=== PATIENT | male | born 1990 | race Caucasian/White ===

== ENCOUNTER 2019-02-10 10:33 | Emergency (ER) | payer SELFPAY ==
[2019-02-10 10:45] VITALS: TEMP 98.2
--- NOTE | 2019-02-10 11:04 | ED.PDOC ---
History of Present Illness - General Chief Complaint: Headache Stated Complaint: headache,dizzy Time Seen by Provider: 02/10/19 10:57 Source: patient, family Exam Limitations: no limitations - History of Present Illness Initial Comments: patient comes in today for severe headache 2 days. Patient has right sided frontal and behind the right eye headache that is throbbing and persistent over the past 2 days. It is severe and constant. Patient states he used to get migraine headaches when he was young but they always went away in a matter of hours. He denies any aura or emesis. He currently does not have nausea. Patient states he did have a little bit of left upper quadrant abdominal pain yesterday but that has since resolved. He has had no sinus congestion or all ergies. He denies any fever, chills, altered LOC, or vision change. He occasionally does feel dizzy and states it alternates between the room spinning and just feeling lightheaded. He has a past medical history of hypertension and he does not currently take medications. Patient is unable to afford to go to the clinic regularly although he did try to go for the headache but they wouldn't see him without money. He has checked his BP multiple times at [facility] and is usually in the 160s systolic. Patient does not smoke but does dip. He does not drink or take illicit drugs. 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 He did take IBU last 600 mg at 8 am. Timing/Duration: other - 2 days and not going away Quality: severe, throbbing Head Injury Location: frontal Recent Head Trauma: no recent headache/trauma Improving Factors: nothing Worsening Factors: other - bright lights or sounds Associated Symptoms: nausea/vomiting Allergies/Adverse Reactions: Allergies NO KNOWN ALLERGY Allergy (Unverified 12/13/13 17:02) Home Medications: Ambulatory Orders Chlorthalidone 25 mg PO DAILY #30 tab 02/10/19 Review of Systems - Review of Systems Constitutional: States: see HPI EENTM: States: see HPI. Denies: blurred vision, double vision, nose pain, nose congestion, throat pain Respiratory: States: no symptoms reported. Denies: cough, orthopnea, short of breath Cardiology: States: no symptoms reported. Denies: chest pain, edema, palpit ations Gastrointestinal/Abdominal: States: no symptoms reported. Denies: abdominal pain, constipation, diarrhea Genitourinary: States: no symptoms reported Endocrine: States: see HPI Past Medical History (General) - Patient Medical History Hx Stroke: No Hx Congestive Heart Failure: No Hx Hypertension: Yes Hx Diabetes: No Surgical History: no surgical history - Vaccination History Hx Influenza Vaccination: No - Social History Hx Tobacco Use: No Family Medical History - Family History Father Family History: Unknown Living Status: Cause of : Cancer from [place] Hx Family Hypertension: Yes Hx Family;Other: Mother with Cirrhosis of Liver Physical Exam - Physical Exam General Appearance: Alert, No apparent distress Eyes, Ears, Nose, Throat Exam: PERRL/EOMI, normal ENT inspection, TMs normal, pharynx normal Neck: non-tender, full range of motion, supple, normal inspection Cardiovascular/Chest: normal peripheral pulses, regular rate, rhythm, no edema Respiratory: chest non-tender, lungs clear, normal breath sounds, no respiratory distress Gastrointestinal/Abdominal: normal bowel sounds, non tender, soft Mental Status: 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 Toradol ordered and will give RX for 1 month for BP medication. Exam and labs are reassuring. Will send home for follow up with PCP in 3-5 days. - Results/Orders Results/Orders: 02/10/19 11:00 Chlorthalidone [Hygroton] 25 mg PO DAILY 02/10/19 11:48 Aspirin/Acetaminophen/Caffeine [Excedrin Migraine] 2 ea PO Q6H PRN Laboratory Results WBC 8.0 K/mm3 (4.8-10.8) 02/10/19 11:17 RBC 4.80 M/mm3 (4.70-6.10) 02/10/19 11:17 Hgb 13.9 gm/dL (14.0-18.0) L 02/10/19 11:17 Hct 42.2 % (42.0-52.0) 02/10/19 11:17 MCV 88.0 fl (80.0-94.0) 02/10/19 11:17 MCH 29.1 pg (27.0-31.0) 02/10/19 11:17 MCHC 33.0 g/dL (33.0-37.0) 02/10/19 11:17 RDW 13.7 % (11.5-14.5) 02/10/19 11:17 Plt Count 300 K/mm3 (130-400) 02/10/19 11:17 MPV 8.2 fl (7.40-10.4) 02/10/19 11:17 Absolute Neuts (auto) 5.70 K/uL (1.8-6.8) 02/10/19 11:17 Absolute Lymphs (auto) 1.60 K/uL (1.0-3.4) 02/10/19 11:17 Absolute Monos (auto) 0.50 K/uL (0.2-0.8) 02/10/19 11:17 Absolute Eos (auto) 0.10 K/uL (0.0-0.4) 02/10/19 11:17 Absolute Basos (auto) 0.00 K/uL (0.0-0.1) 02/10/19 11:17 Neutrophils % 71.6 % (42.0-78.0) 02/10/19 11:17 Lymphocytes % 20.1 % (20.0-50.0) 02/10/19 11:17 Monocytes % 6.4 % (2.0-9.0) 02/10/19 11:17 Eosinophils % 1.5 % (1.0-5.0) 02/10/19 11:17 Basophils % 0.4 % (0.0-2.0) 02/10/19 11:17 Sodium 138 mmol/L (135-145) 02/10/19 11:17 Potassium 4.0 mmol/L (3.6-5.0) 02/10/19 11:17 Chloride 102 mmol/L (101-111) 02/10/19 11:17 Carbon Dioxide 27 mmol/L (21-31) 02/10/19 11:17 Anion Gap 13.0 (12-18) 02/10/19 11:17 BUN 15 mg/dL (7-18) 02/10/19 11:17 Creatinine 0.57 mg/dL (0.6-1.3) L 02/10/19 11:17 BUN/Creatinine Ratio 26.3 (10-20) H 02/10/19 11:17 Random Glucose 87 mg/dL (70-105) 02/10/19 11:17 Serum Osmolality 275.9 mOsm/L (275-295) 02/10/19 11:17 Calcium 9.2 mg/dL (8.4-10.2) 02/10/19 11:17 Total Bilirubin 0.5 mg/dL (0.2-1.0) 02/10/19 11:17 AST 25 IU/L (10-42) 02/10/19 11:17 ALT 34 IU/L (10-60) 02/10/19 11:17 Alkaline Phosphatase 57 IU/L (42-121) 02/10/19 11:17 Serum Total Protein 7.7 gm/dL (6.4-8.2) 02/10/19 11:17 Albumin 4.2 g/dl (3.2-5.5) 02/10/19 11:17 Globulin 3.5 gm/dL (2.3-3.5) 02/10/19 11:17 Albumin/Globulin Ratio 1.2 (1.1-1.9) 02/10/19 11:17 Departure - Departure Clinical Impression: Headache Qualifiers: Headache type: unspecified Headache chronicity pattern: acute headache Intractability: not intractable Qualified Code(s): R51 - Headache Hypertension Qualifiers: Hypertension type: essential hypertension Qualified Code(s): I10 - Essential (primary) hypertension Disposition: Discharge to Home or Self Care Condition: Fair Departure Forms: ED Discharge - Pt. Copy, Patient Portal Self Enrollment Instructions: DI for Headache Referrals: Mag Boland NP [Primary Care Provider] - 1-2 Weeks Prescriptions: Chlorthalidone 25 mg PO DAILY #30 tab Home Medications: Ambulatory Orders Chlorthalidone 25 mg PO DAILY #30 tab 02/10/19 Additional Instructions: follow up with PCP in clinic to check K after taking medication for blood pressure. increase K rich foods. Return to ER for severe headache, altered LOC, vision change, intractable emesis.
[2019-02-10] MEDS: SUMAtriptan SUCCINATE INJ 6 MG/0.5 ML VIAL SUBCU ONE (11:10)
[2019-02-10] MEDS: CHLORTHALIDONE 25 MG TAB PO SCH (11:10)
[2019-02-10] MEDS: ASPIRIN/ACETAMINOPHEN/CAFFEINE 1 EA TAB PO PRN (12:11)
[2019-02-10] MEDS: KETOROLAC TROMETHAMINE INJ 60 MG/2 ML VIAL IM ONE (12:28)
[2019-02-10 12:54] VITALS: BP 136/92; O2SAT 97
== END 2019-02-10 12:54 | disposition home or self-care (01) ==
LOC: ER 10:33
DX: R51 Headache (principal); I10 Essential (primary) hypertension; R42 Dizziness and giddiness; F17.220 Nicotine dependence, chewing tobacco, uncomplicated; Z79.899 Other long term (current) drug therapy
CPT/HCPCS: 36415; 80053; 85025; J1885; J3030

== ENCOUNTER 2019-02-24 07:48 | Emergency (ER) | payer SELFPAY ==
[2019-02-24 07:58] VITALS: TEMP 97.7
[2019-02-24] MEDS ORDERED: IBUPROFEN 200 MG TAB PO ONE (08:03)
[2019-02-24] MEDS ORDERED: PENICILLIN BENZATHINE 1.2 MU 1.2 MU/2 ML SYG IM ONE (08:44)
--- NOTE | 2019-02-24 09:08 | ED.PDOC ---
History of Present Illness - General Chief Complaint: General Stated Complaint: cough,sore throat,fever Time Seen by Provider: 02/24/19 07:56 Source: patient - History of Present Illness Initial Comments: the patient's 28-year-old male presenting to the emergency room secondary to sore throat headache nausea and abdominal cramping and generalized body aches with malaise for the last 24 hours. No real runny nose. Mild cough. No syncope or near-syncope. No altered mental status. Timing/Duration: 24 hours Severity: moderate Improving Factors: nothing Worsening Factors: nothing Associated Symptoms: cough, fever/chills, headaches, loss of appetite, malaise Allergies/Adverse Reactions: Allergies NO KNOWN ALLERGY Allergy (Unverified 12/13/13 17:02) Home Medications: Ambulatory Orders Chlorthalidone 25 mg PO DAILY #30 tab 02/10/19 Review of Systems - Review of Systems Constitutional: States: fever, malaise EENTM: States: throat pain Respiratory: States: cough Cardiology: States: no symptoms reported Gastrointestinal/Abdominal: States: nausea Genitourinary: States: no symptoms reported Musculoskeletal: States: no symptoms reported - myalgias Skin: States: no symptoms reported Neurological: States: no symptoms reported Endocrine: States: no symptoms reported All other Systems: No Change from Baseline Past Medical History (General) - Patient Medical History Hx Stroke: No Hx Congestive Heart Failure: No Hx Hypertension: Yes Hx Diabetes: No Surgical History: no surgical history - Vaccination History Hx Influenza Vaccination: No - Social History Hx Tobacco Use: No Family Medical History - Family History Father Family History: Unknown Living Status: Cause of : Cancer from Agent [place] Hx Family Hypertension: Yes Hx Family;Other: Mother with Cirrhosis of Liver Physical Exam - Physical Exam General Appearance: Alert, Comfortable, No apparent distress Eye Exam: bilateral normal Ears, Nose, Throat: hearing grossly normal, pharyngeal erythema Neck: full range of motion, supple Respiratory: lungs clear, normal breath sounds, no respiratory distress, no accessory muscle use Cardiovascular/Chest: normal peripheral pulses, regular rate, rhythm, no edema Peripheral Pulses: radial,right: 2+, radial,left: 2+, dorsalis pedis,right: 2+, dorsalis pedis,left: 2+ Gastrointestinal/Abdominal: non tender, soft, other - obese Rectal Exam: deferred Back Exam: no CVA tenderness, no vertebral tenderness Extremity: non-tender, normal inspection, no pedal edema, normal capillary refill 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 The patient received a dose of Bicillin LA. He did test positive for this here and negative for influenza. He needs to keep himself well-hydrated. Motrin can be used with food every 8 hours to help control symptoms along with some Chloraseptic spray. ER warnings were given for any significant worsening. Keep routine follow up with primary care doctor otherwise. Departure - Departure Clinical Impression: Streptococcal sore throat Disposition: Discharge to Home or Self Care Condition: Fair Departure Forms: ED Discharge - Pt. Copy, Patient Portal Self Enrollment Instructions: Sore Throat, Adult (DC) Diet: regular diet Activity: increase activity as tolerated Referrals: Mag Boland NP [Primary Care Provider] - 1-2 Weeks Home Medications: Ambulatory Orders Chlorthalidone 25 mg PO DAILY #30 tab 02/10/19 Additional Instructions: the patient a 28-year-old male presenting with what appears to be streptococcal pharyngitis and associated symptoms. The patient received a dose of Bicillin LA. He did test positive for this here and negative for influenza. He needs to keep himself well-hydrated. Motrin can be used with food every 8 hours to help control symptoms along with some Chloraseptic spray. ER warnings were given for any significant worsening. Keep routine follow up with primary care doctor otherwise.
[2019-02-24 09:20] VITALS: BP 129/84; O2SAT 99
== END 2019-02-24 09:20 | disposition home or self-care (01) ==
LOC: ER 07:48
DX: J02.0 Streptococcal pharyngitis (principal); I10 Essential (primary) hypertension; Z79.899 Other long term (current) drug therapy
CPT/HCPCS: 36415; 87502; 87880; J0561

== ENCOUNTER 2019-03-17 11:17 | Emergency (ER) | payer SELFPAY ==
--- NOTE | 2019-03-17 11:39 | ED.PDOC ---
History of Present Illness - General Chief Complaint: Trauma Stated Complaint: right foot pain Time Seen by Provider: 03/17/19 11:19 Exam Limitations: no limitations - History of Present Illness Initial Comments: Estrada Boyle 28 y/o male came to ER with dull ache on his right foot and ankle on waking up this morning .DENIES HISTORY OF HURTING RIGHT FOOT but stated had been diagnosed with Rheumatoid Arthritis was prescribed medications in the past but did not get better so he stopped it.Denies hip,knee,elbow and pains joint of fingers.No fever,no chills, no easy fatigability. Timing/Duration: 24 hours Severity: moderate Improving Factors: rest Worsening Factors: movement Associated Symptoms: denies symptoms, other - see hpi Allergies/Adverse Reactions: Allergies NO KNOWN ALLERGY Allergy (Unverified 12/13/13 17:02) Home Medications: Ambulatory Orders Chlorthalidone 25 mg PO DAILY #30 tab 02/10/19 Allopurinol 300 mg PO DAILY #30 tab 03/17/19 Diclofenac Potassium 50 mg PO DAILY #10 tab 03/17/19 predniSONE 0 mg PO DAILY #5 tab 03/17/19 Review of Systems - Review of Systems Musculoskeletal: States: see HPI, joint pain - right ankle All other Systems: Reviewed and Negative, No Change from Baseline Past Medical History (General) - Patient Medical History Hx Stroke: No Hx Congestive Heart Failure: No Hx Hypertension: Yes Hx Diabetes: No Surgical History: no surgical history - Vaccination History Hx Tetanus, Diphtheria Vaccination: Yes - 2015 Hx Influenza Vaccination: No - Social History Hx Tobacco Use: No Hx Chewing Tobacco Use: No Hx Alcohol Use: No Hx Substance Use: No Hx Depression: No Feels Threatened In Home Enviroment: No Hx Physical Abuse: No Hx Emotional Abuse: No Family Medical History - Family History Father Family History: Unknown Living Status: Cause of : Cancer from [place] Hx Family Hypertension: Yes Hx Family;Other: Mother with Cirrhosis of Liver Physical Exam - Physical Exam General Appearance: Alert, Comfortable, No apparent distress Eye Exam: bilateral normal Ears, Nose, Throat: hearing grossly normal, normal ENT inspection, normal pharynx Neck: non-tender, full range of motion, supple, normal inspection Respiratory: lungs clear, normal breath sounds, no respiratory distress Cardiovascular/Chest: normal peripheral pulses, regular rate, rhythm, no murmur Peripheral Pulses: radial,right: 2+, radial,left: 2+ Gastrointestinal/Abdominal: non tender, soft, no organomegaly Back Exam: no CVA tenderness, no vertebral tenderness Extremity: no pedal edema, no calf tenderness, other - right ankle joint-rom slight painfu plantar extension and flexion Progress - Progress Progress: 03/17/19 12:02 Vital Signs - 24 hr 03/17/19 11:20 Pulse Rate [ 108 H left brachial] Respiratory 16 Rate Blood Pressure 152/90 [left brachial] O2 Sat by Pulse 98 Oximetry - Results/Orders Results/Orders: Laboratory Tests 03/17/19 11:53 Uric Acid 8.3 H - EKG/XRAY/CT XRAY: degenerative changes right foot Departure - Departure Clinical Impression: Pain in right ankle and joints of right foot, Acute gouty arthropathy Time of Disposition: 12:15 Disposition: Discharge to Home or Self Care Condition: Fair Departure Forms: ED Discharge - Pt. Copy, Patient Portal Self Enrollment Instructions: Gout (DC), Low Purine Diet, Lifestyle Changes to Manage Gout, Gout Referrals: Mag Boland NP [Primary Care Provider] - 1-2 Weeks Prescriptions: Allopurinol 300 mg PO DAILY #30 tab Diclofenac Potassium 50 mg PO DAILY #10 tab predniSONE 0 mg PO DAILY #5 tab Home Medications: Ambulatory Orders Chlorthalidone 25 mg PO DAILY #30 tab 02/10/19 Allopurinol 300 mg PO DAILY #30 tab 03/17/19 Diclofenac Potassium 50 mg PO DAILY #10 tab 03/17/19 predniSONE 0 mg PO DAILY #5 tab 03/17/19 Additional Instructions: NEED to follow up with your primary MD [phone] for recheck
[2019-03-17] MEDS ORDERED: KETOROLAC TROMETHAMINE INJ 30 MG/ML VIAL IM ONE (11:52)
[2019-03-17] MEDS ORDERED: DEXAMETHASONE INJ 4 MG/ML VIAL IM ONE (11:52)
--- NOTE | 2019-03-17 11:54 | RAD ---
EXAM DESCRIPTION: Foot,Right 3 Views CLINICAL HISTORY: pain with weight bearing COMPARISON: None Available. TECHNIQUE: AP, LATERAL, AND OBLIQUE radiographs of the right foot were obtained. FINDINGS: The visualized bones appear well mineralized. No acute fracture or dislocation. The soft tissues appear grossly unremarkable. Hammertoe deformities of the second through fifth toes are identified. Os peroneum is noted. Degenerative changes are identified in the midfoot. IMPRESSION: Mild degenerative changes are identified in the midfoot. Electronically signed by: Katelin Chahal MD 03/17/2019 11:52 AM CDT
[2019-03-17 13:29] VITALS: BP 131/85; O2SAT 99
== END 2019-03-17 13:05 | disposition home or self-care (01) ==
LOC: ER 11:17
DX: M10.9 Gout, unspecified (principal); M79.671 Pain in right foot; M25.571 Pain in right ankle and joints of right foot; M06.9 Rheumatoid arthritis, unspecified; I10 Essential (primary) hypertension; Z79.899 Other long term (current) drug therapy
CPT/HCPCS: 73630; 84550; J1100; J1885

== ENCOUNTER 2019-05-01 15:53 | Emergency (ER) | payer SELFPAY ==
[2019-05-01] MEDS ORDERED: ASPIRIN (CHEWABLE) 81 MG TAB PO ONE (16:35)
[2019-05-01] MEDS ORDERED: NITROGLYCERIN 2% 1 GM UD TOP ONE (16:36)
--- NOTE | 2019-05-01 16:41 | ED.PDOC ---
History of Present Illness - General Chief Complaint: Blood Pressure Problem Stated Complaint: headache,elevated BP,chest discomfort Time Seen by Provider: 05/01/19 16:14 Source: patient Exam Limitations: no limitations - History of Present Illness Initial Comments: Patient presents with pain in the left side of his neck and jaw for about 8 hours. It radiates down his left arm. It is constant and feels like "pressure". Associated with dyspnea and vertigo as well as light-headedness. He denies previous episodes. He said he was diagnosed with rheumatoid arthritis as a teen ager. He has htn but has not been taking his medication. Denies history of bipedal edema or hyperlipidemia. He denies history of tobacco use. He says that his father had heart disease and at the age of 44. He also says that he has two sisters, both have heart disease. On is in her 30s and the other in her early 40s. No other complaints. Timing/Duration: other - 8 hours Severity: moderate Improving Factors: nothing Worsening Factors: nothing Associated Symptoms: other - as in HPI Allergies/Adverse Reactions: Allergies NO KNOWN ALLERGY Allergy (Unverified 12/13/13 17:02) Home Medications: Ambulatory Orders Meclizine HCl [Meclizine 25] 25 mg PO BID PRN #20 tab 05/01/19 Review of Systems - Review of Systems Constitutional: States: no symptoms reported EENTM: States: no symptoms reported Respiratory: States: see HPI Cardiology: States: see HPI Gastrointestinal/Abdominal: States: no symptoms reported Genitourinary: States: no symptoms reported Musculoskeletal: States: no symptoms reported Skin: States: no symptoms reported Neurological: States: no symptoms reported Endocrine: States: no symptoms reported Hematologic/Lymphatic: States: no symptoms reported Past Medical History (General) - Patient Medical History Hx Stroke: No Hx Congestive Heart Failure: No Hx Hypertension: Yes Hx Diabetes: No Surgical History: no surgical history - Vaccination History Hx Tetanus, Diphtheria Vaccination: Yes - 2016 Hx Influenza Vaccination: No - Social History Hx Tobacco Use: No Hx Chewing Tobacco Use: No Hx Alcohol Use: No Hx Substance Use: No Hx Depression: No Hx Physical Abuse: No Hx Emotional Abuse: No Family Medical History - Family History Father Family History: Unknown Living Status: Cause of : Cancer from Agent [place] Hx Family Hypertension: Yes Hx Family;Other: Mother with Cirrhosis of Liver Physical Exam - Physical Exam General Appearance: Alert Eye Exam: bilateral normal Ears, Nose, Throat: normal ENT inspection Neck: non-tender, full range of motion, supple Respiratory: lungs clear, normal breath sounds Cardiovascular/Chest: normal peripheral pulses, regular rate, rhythm, no edema Gastrointestinal/Abdominal: normal bowel sounds, non tender, soft Back Exam: normal inspection, no CVA tenderness Extremity: normal range of motion, non-tender, normal inspection 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, no motor/sensory deficits, alert, normal mood/affect, oriented x 3 Skin Exam: normal color Lymphatic: no adenopathy Progress - Progress Progress: 05/01/19 18:44 Laboratory Tests 05/01/19 05/01/19 05/01/19 16:53 16:53 16:53 WBC 8.6 RBC 5.14 Hgb 15.3 Hct 45.6 MCV 88.7 MCH 29.7 MCHC 33.5 RDW 14.2 Plt Count 320 MPV 8.2 Absolute Neuts (auto) 6.30 Absolute Lymphs (auto) 1.60 Absolute Monos (auto) 0.60 Absolute Eos (auto) 0.10 Absolute Basos (auto) 0.10 Neutrophils % 72.6 Lymphocytes % 18.7 L Monocytes % 7.0 Eosinophils % 1.0 Basophils % 0.7 PT 9.9 INR 0.99 PTT (SP) 25.8 Sodium 139 Potassium 3.9 Chloride 101 Carbon Dioxide 29 Anion Gap 12.9 BUN 11 Creatinine 0.71 BUN/Creatinine Ratio 15.5 Random Glucose 93 Serum Osmolality 276.6 Calcium 9.6 Total Bilirubin 0.4 AST 35 ALT 51 Alkaline Phosphatase 69 Creatine Kinase CK-MB (CK-2) CK-MB (CK-2) % Troponin I B-Natriuretic Peptide Serum Total Protein 8.5 H Albumin 4.4 Globulin 4.1 H Albumin/Globulin Ratio 1.1 05/01/19 16:53 WBC RBC Hgb Hct MCV MCH MCHC RDW Plt Count MPV Absolute Neuts (auto) Absolute Lymphs (auto) Absolute Monos (auto) Absolute Eos (auto) Absolute Basos (auto) Neutrophils % Lymphocytes % Monocytes % Eosinophils % Basophils % PT INR PTT (SP) Sodium Potassium Chloride Carbon Dioxide Anion Gap BUN Creatinine BUN/Creatinine Ratio Random Glucose Serum Osmolality Calcium Total Bilirubin AST ALT Alkaline Phosphatase Creatine Kinase 148 CK-MB (CK-2) 1.5 CK-MB (CK-2) % Not Reportable Troponin I < 0.02 B-Natriuretic Peptide 8.5 Serum Total Protein Albumin Globulin Albumin/Globulin Ratio EKG showed NSR with no ST changes nor T wave inversions. No LBBB. Troponin negative. CT head and C-spine negative. Patient's vertigo improved significantly with Meclizine 25 mg po x one. He was instructed to follow up with his pcp for a possible stress test. Care instructions given. E.R. warnings given. Questions were elicited and answered. Patient voiced understanding and agreement with the plan. Departure - Departure Clinical Impression: Vertigo, Chest pain Disposition: Discharge to Home or Self Care Condition: Good Departure Forms: ED Discharge - Pt. Copy, Patient Portal Self Enrollment Instructions: Vertigo (a Type of Dizziness) (DC), Chest Pain (DC) Diet: resume usual diet Activity: increase activity as tolerated Referrals: Mag Boland, [employer] [Primary Care Provider] - 1-2 Weeks Prescriptions: Meclizine HCl [Meclizine 25] 25 mg PO BID PRN #20 tab PRN Reason: Dizziness Home Medications: Ambulatory Orders Meclizine HCl [Meclizine 25] 25 mg PO BID PRN #20 tab 05/01/19 Additional Instructions: Take medication as prescribed. See your regular doctor about getting a treadmill stress test. See your regular doctor if dizziness or neck and arm pain continue for more than 4 weeks. Return to the E.R. for worsening symptoms. Critical Care Note - Critical Care Note Total Time (mins): 100
--- NOTE | 2019-05-01 17:04 | RAD ---
EXAM:Chest,2 Views CLINICAL INDICATION: Chest pain COMPARISON: 12/13/2013 FINDINGS:Two views of the chest were obtained. The heart size is normal. The pulmonary vascularity is unremarkable. The lungs are clear. There is no consolidation, infiltrate, pleural effusion, or pneumothorax. IMPRESSION: No evidence of active pulmonary disease. Electronically signed by: Amor Cifuentes MD 05/01/2019 5:02 PM CDT
[2019-05-01] MEDS ORDERED: MECLIZINE HCL 12.5 MG TAB PO ONE (17:41)
--- NOTE | 2019-05-01 18:08 | CT ---
EXAM: Head CLINICAL INDICATION: Vertigo COMPARISON: There is no previous study for comparison. TECHNIQUE: The CT scan was done using contiguous axial 2.5 mm sections through the brain. This exam was performed according to our departmental dose-optimization program, which includes automated exposure control, adjustment of the mA and/or kV according to patient size and/or use of iterative reconstruction technique. FINDINGS: There is no midline shift, mass effect, or extraaxial fluid collection. There is no evidence of acute intracranial hemorrhage, mass lesion, or cerebral edema. The ventricles and cortical sulci are normal for the patient's age. Bone window images reveal no evidence of a skull fracture. IMPRESSION: No evidence of an acute intracranial process. Electronically signed by: Amor Cifuentes MD 05/01/2019 6:06 PM CDT
--- NOTE | 2019-05-01 18:09 | CT ---
EXAM: Cervical Spine CLINICAL INDICATION: Arm pain COMPARISON: There is no previous study for comparison. TECHNIQUE: The CT scan was done using contiguous axial 3mm sections through the cervical spine with sagittal and coronal reconstructions. This exam was performed according to our departmental dose-optimization program, which includes automated exposure control, adjustment of the mA and/or kV according to patient size and/or use of iterative reconstruction technique. FINDINGS: There is no fracture or subluxation. The prevertebral soft tissues are normal. The bilateral facet joint alignment is normal. The osseous structures appear intact and unremarkable. IMPRESSION: Essentially negative cervical spine CT scan. Electronically signed by: Amor Cifuentes MD 05/01/2019 6:07 PM CDT
[2019-05-01 19:05] VITALS: BP 140/91; TEMP 98.2; O2SAT 98
== END 2019-05-01 18:55 | disposition home or self-care (01) ==
LOC: ER 15:53
DX: R07.9 Chest pain, unspecified (principal); R42 Dizziness and giddiness; M54.2 Cervicalgia; R68.84 Jaw pain; R06.00 Dyspnea, unspecified; M06.9 Rheumatoid arthritis, unspecified; I10 Essential (primary) hypertension; Z82.49 Family history of ischemic heart disease and other diseases of the circulatory system

== ENCOUNTER 2019-07-11 10:18 | Emergency (ER) | payer SELFPAY ==
[2019-07-11 10:41] VITALS: TEMP 98
[2019-07-11] MEDS ORDERED: HALOPERIDOL LACTATE INJ 5 MG/ML VIAL IV ONE (10:41)
[2019-07-11] MEDS ORDERED: HYDROcodone 10MG/APAP 325MG 1 EA TAB PO ONE (10:43)
--- NOTE | 2019-07-11 10:51 | ED.PDOC ---
History of Present Illness - General Chief Complaint: Headache Stated Complaint: Headache Time Seen by Provider: 07/11/19 10:25 Source: patient Exam Limitations: no limitations - History of Present Illness Initial Comments: HE HAS BEEN HAVING A HEADACHE SINCE THURSDAY, UNIVERSAL ASSOCIATED WITH NAUSEA, PALPITATIONS AND BLURRY VISION AND RATES IT AT 8/10. HAS HAD SIMILAR PROBLEMS AND BEEN SEEN HERE FOR SAME. HE SUFFERS OF HYPERTENSION AND JUVENILE ONSET RA. BP IS UNTREATED. Allergies/Adverse Reactions: Allergies NO KNOWN ALLERGY Allergy (Unverified 07/11/19 10:32) Home Medications: Ambulatory Orders Lisinopril 20 mg PO DAILY #30 tab 07/11/19 Tramadol HCl 50 mg PO Q6HRS #14 tab 07/11/19 Review of Systems - Review of Systems Constitutional: States: malaise EENTM: States: blurred vision Respiratory: States: no symptoms reported Cardiology: States: palpitations Gastrointestinal/Abdominal: States: nausea Genitourinary: States: no symptoms reported Musculoskeletal: States: no symptoms reported Skin: States: no symptoms reported Neurological: States: headache Endocrine: States: no symptoms reported Hematologic/Lymphatic: States: no symptoms reported Past Medical History (General) - Patient Medical History Hx Stroke: No Hx Congestive Heart Failure: No Hx Hypertension: Yes Hx Diabetes: No Surgical History: no surgical history - Vaccination History Hx Tetanus, Diphtheria Vaccination: Yes - 2015 Hx Influenza Vaccination: Yes - 2018 Hx Pneumococcal Vaccination: No - Social History Hx Tobacco Use: No Hx Chewing Tobacco Use: No Hx Alcohol Use: No Hx Substance Use: No Hx Depression: No Hx Physical Abuse: No Hx Emotional Abuse: No Family Medical History - Family History Father Family History: Unknown Living Status: Cause of : Cancer from Agent [place] Hx Family Hypertension: Yes Hx Family;Other: Mother with Cirrhosis of Liver Physical Exam - Physical Exam General Appearance: Alert, Other - MODERATE DISTRESS Eye Exam: bilateral normal Ears, Nose, Throat: normal ENT inspection Neck: non-tender Respiratory: chest non-tender, lungs clear, normal breath sounds, no respiratory distress, no accessory muscle use Cardiovascular/Chest: normal peripheral pulses, regular rate, rhythm, tachycardia Peripheral Pulses: radial,right: 2+, radial,left: 2+ Gastrointestinal/Abdominal: normal bowel sounds, non tender, soft, no organomegaly, no pulsatile mass Rectal Exam: deferred Back Exam: normal inspection Extremity: normal range of motion 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 bp is improved, 130/90. 07/11/19 12:14 ekg: HR OF 94, MT INTERVAL OF 150, QRS OF 94, QTC OF 435, AXES OF 9 DEGREES. IMPRESSION: SINUS RHYTHM, LVH, NO ACUTE INJURY PATTERN. - Results/Orders Results/Orders: 07/11/19 10:41 EKG Assessment ONCE 07/11/19 10:45 EKG STAT Laboratory Results WBC 7.4 K/mm3 (4.8-10.8) 07/11/19 11:00 RBC 4.93 M/mm3 (4.70-6.10) 07/11/19 11:00 Hgb 14.7 gm/dL (14.0-18.0) 07/11/19 11:00 Hct 43.7 % (42.0-52.0) 07/11/19 11:00 MCV 88.6 fl (80.0-94.0) 07/11/19 11:00 MCH 29.8 pg (27.0-31.0) 07/11/19 11:00 MCHC 33.6 g/dL (33.0-37.0) 07/11/19 11:00 RDW 13.5 % (11.5-14.5) 07/11/19 11:00 Plt Count 323 K/mm3 (130-400) 07/11/19 11:00 MPV 8.5 fl (7.40-10.4) 07/11/19 11:00 Absolute Neuts (auto) 5.00 K/uL (1.8-6.8) 07/11/19 11:00 Absolute Lymphs (auto) 1.90 K/uL (1.0-3.4) 07/11/19 11:00 Absolute Monos (auto) 0.40 K/uL (0.2-0.8) 07/11/19 11:00 Absolute Eos (auto) 0.00 K/uL (0.0-0.4) 07/11/19 11:00 Absolute Basos (auto) 0.10 K/uL (0.0-0.1) 07/11/19 11:00 Neutrophils % 67.1 % (42.0-78.0) 07/11/19 11:00 Lymphocytes % 25.6 % (20.0-50.0) 07/11/19 11:00 Monocytes % 5.8 % (2.0-9.0) 07/11/19 11:00 Eosinophils % 0.6 % (1.0-5.0) L 07/11/19 11:00 Basophils % 0.9 % (0.0-2.0) 07/11/19 11:00 Sodium 140 mmol/L (135-145) 07/11/19 11:00 Potassium 3.9 mmol/L (3.6-5.0) 07/11/19 11:00 Chloride 102 mmol/L (101-111) 07/11/19 11:00 Carbon Dioxide 27 mmol/L (21-31) 07/11/19 11:00 Anion Gap 14.9 (12-18) 07/11/19 11:00 BUN 9 mg/dL (7-18) 07/11/19 11:00 Creatinine 0.77 mg/dL (0.6-1.3) 07/11/19 11:00 BUN/Creatinine Ratio 11.7 (10-20) 07/11/19 11:00 Random Glucose 109 mg/dL (70-105) H 07/11/19 11:00 Serum Osmolality 278.7 mOsm/L (275-295) 07/11/19 11:00 Calcium 9.7 mg/dL (8.4-10.2) 07/11/19 11:00 Total Bilirubin 0.5 mg/dL (0.2-1.0) 07/11/19 11:00 AST 34 IU/L (10-42) 07/11/19 11:00 ALT 47 IU/L (10-60) 07/11/19 11:00 Alkaline Phosphatase 61 IU/L (42-121) 07/11/19 11:00 Serum Total Protein 7.7 gm/dL (6.4-8.2) 07/11/19 11:00 Albumin 4.4 g/dl (3.2-5.5) 07/11/19 11:00 Globulin 3.3 gm/dL (2.3-3.5) 07/11/19 11:00 Albumin/Globulin Ratio 1.3 (1.1-1.9) 07/11/19 11:00 Departure - Departure Clinical Impression: Hypertension Qualifiers: Hypertension type: essential hypertension Qualified Code(s): I10 - Essential (primary) hypertension Headache Qualifiers: Headache type: other vascular headache Qualified Code(s): G44.1 - Vascular headache, not elsewhere classified Time of Disposition: 12:16 Disposition: Discharge to Home or Self Care Condition: Good Departure Forms: ED Discharge - Pt. Copy, Patient Portal Self Enrollment Instructions: DI for Headache, High Blood Pressure Emergencies Diet: low salt diet Activity: increase activity as tolerated Prescriptions: Tramadol HCl 50 mg PO Q6HRS #14 tab Lisinopril 20 mg PO DAILY #30 tab Home Medications: Ambulatory Orders Lisinopril 20 mg PO DAILY #30 tab 07/11/19 Tramadol HCl 50 mg PO Q6HRS #14 tab 07/11/19
[2019-07-11] MEDS: LABETALOL INJ 5 MG/ML VIAL IV ONE ×2 (11:00→11:06)
[2019-07-11 12:28] VITALS: BP 137/99; O2SAT 96
== END 2019-07-11 12:29 | disposition home or self-care (01) ==
LOC: ER 10:18
DX: G44.1 Vascular headache, not elsewhere classified (principal); I10 Essential (primary) hypertension; R11.0 Nausea; H53.8 Other visual disturbances; M08.00 Unspecified juvenile rheumatoid arthritis of unspecified site
CPT/HCPCS: 80053; 85025; 93005; J1630

== ENCOUNTER 2019-07-27 11:36 | Emergency (ER) | payer SELFPAY ==
[2019-07-27] MEDS ORDERED: ACETAMINOPHEN W/COD #3 TAB 1 EA TAB PO ONE (11:56)
[2019-07-27] MEDS ORDERED: diazePAM 5 MG TAB PO ONE (11:56)
--- NOTE | 2019-07-27 12:03 | ED.PDOC ---
History of Present Illness - General Chief Complaint: Back Pain or Injury Stated Complaint: lower back and right foot pain Time Seen by Provider: 07/27/19 11:45 Source: patient Exam Limitations: no limitations - History of Present Illness Initial Comments: 29 yo M with PMH of HTN, arthritis in bilateral feet, sciatica, who presents for lower back pain and R foot pain onset last night after helping a friend carry a large AC unit at which time his friend dropped his side causing the pt to drop the AC unit on his R foot and feel a pull in his lower back, mainly on the R side. Pt has continued to have pain in his R foot but has been able to ambulate, has not noticed swelling or bruising. Reports lower back pain is worse on R, no radiation, constant, worse with movement. Denies f/c, weakness, numbness, incontinence, saddle anesthesia. Improving Factors: rest Worsening Factors: movement Associated Symptoms: denies symptoms Allergies/Adverse Reactions: Allergies NO KNOWN ALLERGY Allergy (Unverified 07/27/19 11:55) Home Medications: Ambulatory Orders Lisinopril 20 mg PO DAILY #30 tab 07/11/19 Acetaminophen W/ Codeine [Tylenol W/ CODEINE #3] 1 ea PO Q6HR PRN #12 07/27/19 Methocarbamol [Robaxin] 500 mg PO Q6HR PRN #16 tab 07/27/19 Review of Systems - Review of Systems Constitutional: States: no symptoms reported. Denies: chills, fever, weakness Cardiology: States: no symptoms reported Gastrointestinal/Abdominal: States: no symptoms reported Genitourinary: States: no symptoms reported Musculoskeletal: States: back pain, other - R foot pain. Denies: neck pain Skin: States: no symptoms reported Neurological: States: no symptoms reported. Denies: numbness, paresthesia, tingling, weakness Past Medical History (General) - Patient Medical History Hx Stroke: No Hx Congestive Heart Failure: No Hx Hypertension: Yes Hx Diabetes: No Hx Cancer: No Hx Hepatitis C: No Surgical History: no surgical history - Vaccination History Hx Tetanus, Diphtheria Vaccination: Yes Hx Influenza Vaccination: No Hx Pneumococcal Vaccination: No - Social History Hx Tobacco Use: No Hx Chewing Tobacco Use: No Hx Alcohol Use: No Hx Substance Use: No Hx Substance Use Treatment: No Hx Depression: No Hx Physical Abuse: No Hx Emotional Abuse: No - Female History Patient is a Female of Child Bearing Age (10 -59 yrs old): No Family Medical History - Family History Father Family History: Unknown Living Status: Cause of : Cancer from Agent [place] Hx Family Hypertension: Yes Hx Family;Other: Mother with Cirrhosis of Liver Physical Exam - Physical Exam General Appearance: Alert, Well Developed, Well Nourished Neck Exam: non-tender, full range of motion Cardiovascular/Respiratory: regular rate, rhythm, no M/R/G, normal peripheral pulses, normal breath sounds, no respiratory distress Gastrointestinal/Abdominal: non tender, soft Back Exam: normal inspection, no CVA tenderness, no vertebral tenderness, muscle spasm, other - No midline C/T/L spine TTP, step off, defomities. L paraspinal TTP with spasm. Neg SLR bilaterally. Extremity Exam: other - R foot with TTP on dorsal aspect, no swelling, no ecchymosis, FROM. Proximal joint and extremity with FROM, NT, no swelling, no deformity. Neurologic: no motor/sensory deficits, oriented x 3 Skin Exam: warm/dry Progress - Progress Progress: Radiology: L spine XR: IMPRESSION: No acute fracture or subluxation. Electronically signed by: Nicho Figueroa MD 07/27/2019 12:58 PM CDT R foot XR: IMPRESSION: No evidence of acute process in the right foot. Electronically signed by: Nicho Figueroa MD 07/27/2019 12:58 PM CDT - 07/27/19 13:07 Pt well appearing, resting comfortable. Reviewed all results, pt feeling improved. All questions and concerns addressed. Strong ED return warnings discussed. Pt is stable for d/c home. Annette Collazo MD Emergency Medicine Physician Billing Number [id number] Departure - Departure Clinical Impression: Low back strain Qualifiers: Encounter type: initial encounter Qualified Code(s): S39.012A - Strain of muscle, fascia and tendon of lower back, initial encounter Injury of right foot Qualifiers: Encounter type: initial encounter Qualified Code(s): S99.921A - Unspecified injury of right foot, initial encounter Time of Disposition: 13:14 Disposition: Discharge to Home or Self Care Health Concerns: Condition: Stable Departure Forms: ED Discharge - Pt. Copy, Patient Portal Self Enrollment Instructions: DI for Low Back Pain, DI for Back Strain or Sprain Prescriptions: Acetaminophen W/ Codeine [Tylenol W/ CODEINE #3] 1 ea PO Q6HR PRN #12 PRN Reason: Pain Methocarbamol [Robaxin] 500 mg PO Q6HR PRN #16 tab PRN Reason: Muscle Spasms Home Medications: Ambulatory Orders Lisinopril 20 mg PO DAILY #30 tab 07/11/19 Acetaminophen W/ Codeine [Tylenol W/ CODEINE #3] 1 ea PO Q6HR PRN #12 07/27/19 Methocarbamol [Robaxin] 500 mg PO Q6HR PRN #16 tab 07/27/19 Additional Instructions: Follw up: Please follow up with your PCP, please return to ED with any new, continued, worsening sx. Instructions: Rest, ice, elevation, compression. Avoid bed rest. Tylenol and motrin for pain.
--- NOTE | 2019-07-27 12:59 | RAD ---
EXAM DESCRIPTION: Foot,Right 3 Views CLINICAL HISTORY: 29 years Male, Injury, pain COMPARISON: None. Findings: Number of images: 3 Location: Right foot No acute fracture or dislocation. Moderate midfoot osteoarthritis.. Lisfranc alignment is maintained. No focal soft tissue swelling. IMPRESSION: No evidence of acute process in the right foot. Electronically signed by: Nicho Figueroa MD 07/27/2019 12:58 PM CDT
--- NOTE | 2019-07-27 13:00 | RAD ---
EXAM DESCRIPTION: Lumbar Spine 3 Views CLINICAL HISTORY: 29 years Male, Injury, pain COMPARISON: None. Findings: Number of images: 3 Location: Lumbar spine Five lumbar type vertebral bodies. No acute fracture or subluxation. Vertebral body heights are maintained. Soft tissues are unremarkable. No significant degenerative disc disease. IMPRESSION: No acute fracture or subluxation. Electronically signed by: Nicho Figueroa MD 07/27/2019 12:58 PM CDT
[2019-07-27 13:32] VITALS: BP 127/77; TEMP 98.3; O2SAT 98
== END 2019-07-27 13:32 | disposition home or self-care (01) ==
LOC: ER 11:36
DX: S39.012A Strain of muscle, fascia and tendon of lower back, initial encounter (principal); S99.921A Unspecified injury of right foot, initial encounter; I10 Essential (primary) hypertension; Z79.899 Other long term (current) drug therapy; Y93.89 Activity, other specified; W20.8XXA Other cause of strike by thrown, projected or falling object, initial encounter; Y92.9 Unspecified place or not applicable

== ENCOUNTER 2019-11-17 20:03 | Emergency (ER) | payer SELFPAY ==
--- NOTE | 2019-11-17 20:29 | ED.PDOC ---
History of Present Illness - General Chief Complaint: Syncope/Near Syncope Stated Complaint: syncope in shower Time Seen by Provider: 11/17/19 20:27 Additional Information: Patient presents for evaluation of syncope. He notes that he had left upper abdominal pain after eating a steak dinner this evening. He states that he was taking a shower and passed out in the shower. Denies any preceding chest pain, SOB, nausea, or vomiting. He does have a headache at this time after hitting his head. Denies headache prior to syncope. Denies recent travel, recent surgeries, hx of blood clots, hormone replacement, leg swelling or leg pain. No hx of blood clot in family. No hx of ACS in immediate family under age of 50. - History of Present Illness Allergies/Adverse Reactions: Allergies NO KNOWN ALLERGY Allergy (Unverified 07/27/19 11:55) Home Medications: Ambulatory Orders RX: Lisinopril 20 mg PO DAILY #30 tab 07/11/19 Acetaminophen W/ Codeine [Tylenol W/ CODEINE #3] 1 ea PO Q6HR PRN #12 07/27/19 Methocarbamol [Robaxin] 500 mg PO Q6HR PRN #16 tab 07/27/19 Review of Systems - Review of Systems Constitutional: Denies: chills, fever EENTM: Denies: double vision Respiratory: Denies: short of breath Cardiology: Denies: chest pain Gastrointestinal/Abdominal: States: abdominal pain Genitourinary: Denies: frequency Musculoskeletal: Denies: back pain Skin: Denies: rash Neurological: States: headache. Denies: numbness, weakness Hematologic/Lymphatic: Denies: blood clots Past Medical History (General) - Patient Medical History Hx Stroke: No Hx Congestive Heart Failure: No Hx Hypertension: Yes Hx Diabetes: No Hx Cancer: No Hx Hepatitis C: No - Vaccination History Hx Tetanus, Diphtheria Vaccination: Yes Hx Influenza Vaccination: No Hx Pneumococcal Vaccination: No - Social History Hx Tobacco Use: No Hx Chewing Tobacco Use: No Hx Alcohol Use: No Hx Substance Use: No Hx Substance Use Treatment: No Hx Depression: No Hx Physical Abuse: No Hx Emotional Abuse: No Physical Exam - Physical Exam General Appearance: Alert, Comfortable, No apparent distress Eyes, Ears, Nose, Throat Exam: PERRL/EOMI Neck: full range of motion, supple, other - no midline spinal tenderness Cardiovascular/Respiratory: regular rate, rhythm, no M/R/G, normal peripheral pulses, no JVD, normal breath sounds, no respiratory distress Gastrointestinal/Abdominal: soft, no organomegaly, tenderness - Epigastrium Extremity: normal inspection, no pedal edema, no calf tenderness 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 He had no signs of arrhythmia, ischemic changes, WPW or brugada syndrome on EKG. Troponin was also WNL and not suggestive of ACS. His abdominal pain resolved after GI cocktail. D-dimer was obtained as a screening tool for PE and found to be negative, making PE unlikely. Symptoms did not suggest aortic dissection and CXR was not significant for mediastinal widening. There was no pulse abnormality on exam. CT head was not significant for intracranial hemorrhage given his head trauma from the fall. THere was no anemia. CMP was suggestive of dehydration. He was feeling better after a liter of IV fluids. Symptoms are suggestive of gastritis leading to vasovagal syncope in the shower. He also has a component of dehydration. Patient feeling better and ready to be discharged. Discussed importance of hydration and discussed starting H2 tyrell for gastritis. Will follow-up with PCP for re-evaluation. - Results/Orders Results/Orders: CXR: NAD CT Head: No acute intracranial hemorrhage Departure - Departure Clinical Impression: Syncope, Gastritis, Dehydration Time of Disposition: 22:35 Disposition: Discharge to Home or Self Care Condition: Fair Departure Forms: ED Discharge - Pt. Copy, Patient Portal Self Enrollment Instructions: DI for Syncope in Adults (Fainting) Home Medications: Ambulatory Orders RX: Lisinopril 20 mg PO DAILY #30 tab 07/11/19 Acetaminophen W/ Codeine [Tylenol W/ CODEINE #3] 1 ea PO Q6HR PRN #12 07/27/19 Methocarbamol [Robaxin] 500 mg PO Q6HR PRN #16 tab 07/27/19
[2019-11-17] MEDS ORDERED: LIDOCAINE HCL 2% (MOUTH-THROAT) 15 ML UD ONE (20:33)
[2019-11-17] MEDS ORDERED: ALUM & MAG HYDROX-SIMETHICONE 30 ML UD ONE (20:33)
[2019-11-17] MEDS: ALUM & MAG HYDROX-SIMETHICONE 30 ML, LIDOCAINE VISCOUS 2% 15 ML PO ONE ×2 (20:36)
[2019-11-17] MEDS: SODIUM CHLORIDE 0.9% 1000ML 1,000 ML IVS ONE (20:36)
[2019-11-17] MEDS: ACETAMINOPHEN 500 MG TAB PO ONE (21:38)
--- NOTE | 2019-11-17 22:33 | CT ---
EXAM DESCRIPTION: Head CLINICAL HISTORY: 29 years Male, Syncope. Hit head. Assess for ICH COMPARISON: CT head 05/01/2019 TECHNIQUE: Axial images obtained from the skull base to the vertex without intravenous contrast with images. Coronal and sagittal reformations provided. This exam was performed according to our departmental dose-optimization program, which includes automated exposure control, adjustment of the mA and/or kV according to patient size and/or use of iterative reconstruction technique. Time Last Seen Well (If known) for Code Stroke: n/a FINDINGS: Brain Parenchyma, ventricles, meninges, and extra-axial spaces: Normal ventricles and sulci. Normal attenuation of brain parenchyma. No acute intracranial hemorrhage. No abnormal extra-axial fluid collection. Vascular: Normal. Calvarium, paranasal sinuses, mastoids, and orbits: Calvarium intact. Visualized paranasal sinuses and mastoid air cells clear. Orbits unremarkable. IMPRESSION: 1. No acute intracranial abnormality. 2. No significant change from 05/01/2019. Electronically signed by: Christiano Bowen MD 11/17/2019 10:31 PM [facility]
[2019-11-17 22:59] VITALS: TEMP 97
[2019-11-17 23:03] VITALS: BP 118/86; O2SAT 98
== END 2019-11-17 23:03 | disposition home or self-care (01) ==
LOC: ER 20:03
DX: R55 Syncope and collapse (principal); K29.70 Gastritis, unspecified, without bleeding; E86.0 Dehydration; R51 Headache; I10 Essential (primary) hypertension; Z79.899 Other long term (current) drug therapy
CPT/HCPCS: 70450; 71046; 80053; 83690; 84484; 85025; 85379; 93005; J7030

== ENCOUNTER 2019-11-28 09:21 | Emergency (ER) | payer SELFPAY ==
[2019-11-28 09:30] VITALS: TEMP 98.6
[2019-11-28] MEDS ORDERED: KETOROLAC TROMETHAMINE INJ 60 MG/2 ML VIAL IM ONE (09:31)
--- NOTE | 2019-11-28 09:34 | ED.PDOC ---
History of Present Illness - General Chief Complaint: Respiratory Problem Stated Complaint: Cough, weakness Time Seen by Provider: 11/28/19 09:27 Source: patient - History of Present Illness Comments: 29-year-old male presents to the emergency department complaining of cough, congestion, sore throat and myalgias with generalized weakness onset 1 day ago. He has not had any measured fever. He denies any associated abdominal pain, nausea, vomiting or diarrhea. He did take [id number] TheraFlu for his symptoms this morning without significant improvement. 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 Symptoms are currently rated as moderate in severity. Allergies/Adverse Reactions: Allergies NO KNOWN ALLERGY Allergy (Unverified 07/27/19 11:55) Home Medications: Ambulatory Orders Lisinopril 20 mg PO DAILY #30 tab 07/11/19 Albuterol Inhaler [Ventolin Hfa Inhaler] 1 - 2 puff INH Q4H PRN #1 inh 11/28/19 Prednisone 50 mg PO DAILY #5 tab 11/28/19 Review of Systems - Review of Systems Constitutional: States: weakness. Denies: chills, fever EENTM: States: nose congestion, throat pain Respiratory: States: cough. Denies: short of breath Cardiology: Denies: chest pain, palpitations Gastrointestinal/Abdominal: Denies: abdominal pain, diarrhea, nausea, vomiting Genitourinary: Denies: dysuria, hematuria Musculoskeletal: States: muscle pain. Denies: joint pain Skin: Denies: lesions, rash Neurological: Denies: headache, numbness Past Medical History (General) - Patient Medical History Hx Stroke: No Hx Congestive Heart Failure: No Hx Hypertension: Yes Hx Diabetes: No Hx Cancer: No Hx Hepatitis C: No Hx MRSA: No - Vaccination History Hx Tetanus, Diphtheria Vaccination: Yes Hx Influenza Vaccination: No Hx Pneumococcal Vaccination: No - Social History Hx Tobacco Use: No Hx Chewing Tobacco Use: Yes Hx Alcohol Use: No Hx Substance Use: No Hx Substance Use Treatment: No Hx Depression: No Hx Physical Abuse: No Hx Emotional Abuse: No Family Medical History - Family History Father Family History: Unknown Living Status: Cause of : Cancer from Agent [place] Hx Family Hypertension: Yes Hx Family;Other: Mother with Cirrhosis of Liver Physical Exam - Physical Exam General Appearance: Alert, Well Developed, Well Nourished Eye Exam: bilateral normal ENT Exam: nasal congestion, other - erythema to posterior pharynx Neck: normal inspection, trachea midline Respiratory: no respiratory distress, no accessory muscle use, other - coarse BS Cardiovascular/Chest: no murmur, tachycardia Gastrointestinal/Abdominal: normal bowel sounds, non tender, soft Extremity: normal range of motion, normal inspection Neurologic: alert, oriented x 3, other - moves all extremities without focal deficits Skin Exam: normal color, warm/dry Comments: Vital Signs - 24 hr 11/28/19 09:21 Temperature 98.6 F Pulse Rate [ 108 H Left Radial] Respiratory 26 H Rate Blood Pressure 127/91 [Left Arm] O2 Sat by Pulse 99 Oximetry Progress - Progress Progress: 11/28/19 11:00 Pt recheck: All lab and imaging results discussed with the patient along with plan for discharge and outpatient treatment with albuterol and steroids. He was encouraged to increase oral fluid intake and to use dqxo-lvj-qnryqoh honey and pineapple juice to help with cough suppression. He'll be given a note for being off work for 2 days. He is encouraged to follow up with his primary care physician and to return to the emergency department for any significant worsening of symptoms or other concerns. The patient has voiced understanding and agrees with the treatment plan and all questions and concerns were addressed. - Results/Orders Results/Orders: CXR: Impression: 1. No acute abnormality in the chest. 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 Departure - Departure Clinical Impression: Influenza-like illness Time of Disposition: 11:07 Disposition: Discharge to Home or Self Care Condition: Good Departure Forms: ED Discharge - Pt. Copy, Patient Portal Self Enrollment Instructions: Viral Upper Respiratory Infection, Adult (DC), Flu Referrals: [facility] [Provider Group] - 1-5 Days Prescriptions: Albuterol Inhaler [Ventolin Hfa Inhaler] 1 - 2 puff INH Q4H PRN #1 inh PRN Reason: sob Prednisone 50 mg PO DAILY #5 tab Home Medications: Ambulatory Orders Lisinopril 20 mg PO DAILY #30 tab 07/11/19 Albuterol Inhaler [Ventolin Hfa Inhaler] 1 - 2 puff INH Q4H PRN #1 inh 11/28/19 Prednisone 50 mg PO DAILY #5 tab 11/28/19 Additional Instructions: Take medications as directed. Increase oral fluid intake. Jpug-dgb-jwilakc pineapple juice and honey can both be used for cough suppression. Follow up with your primary care physician or the [facility]. Return to the emergency department for any worsening of symptoms or other concerns.
--- NOTE | 2019-11-28 10:22 | RAD ---
Procedure: XR CHEST 2 VIEWS Exam Date: 11/28/2019 Ordering Provider: Rosita Alvarez Clinical Indication: cough Comparison: 11/17/2019 Findings: Cardiomediastinal silhouette is within normal limits. No focal lung consolidation. No pleural effusion. No pneumothorax. No acute osseous abnormality. Impression: 1. No acute abnormality in the chest. Electronically signed by: Sunny Hampton MD 11/28/2019 10:20 AM [facility]
[2019-11-28 10:36] VITALS: O2SAT 97
[2019-11-28 11:23] VITALS: BP 145/88
== END 2019-11-28 11:15 | disposition home or self-care (01) ==
LOC: ER 09:21
DX: J11.1 Influenza due to unidentified influenza virus with other respiratory manifestations (principal); I10 Essential (primary) hypertension; Z87.891 Personal history of nicotine dependence; Z79.899 Other long term (current) drug therapy
CPT/HCPCS: 71046; 87502; J1885

== ENCOUNTER 2019-11-30 12:26 | Emergency (ER) | payer SELFPAY ==
[2019-11-30] MEDS ORDERED: PROMETHAZINE HCL INJ 25 MG in SODIUM CHLORIDE 0.9% 50ML 50 ML IVPB ONE (12:52)
[2019-11-30] MEDS ORDERED: SODIUM CHLORIDE 0.9% 1000ML 1,000 ML IVS ONE (12:52)
[2019-11-30] MEDS ORDERED: ALUM & MAG HYDROX-SIMETHICONE 30 ML, LIDOCAINE VISCOUS 2% 15 ML PO ONE ×2 (12:52)
[2019-11-30] MEDS ORDERED: ALUM & MAG HYDROX-SIMETHICONE 30 ML UD ONE (13:21)
[2019-11-30] MEDS ORDERED: LIDOCAINE HCL 2% (MOUTH-THROAT) 15 ML UD ONE (13:21)
[2019-11-30] MEDS ORDERED: PROMETHAZINE HCL INJ 25 MG/ML VIAL ONE (13:21)
[2019-11-30] MEDS ORDERED: SODIUM CHLORIDE 0.9% 50ML 50 ML ONE (13:21)
--- NOTE | 2019-11-30 13:29 | RAD ---
EXAM DESCRIPTION: Chest,2 Views CLINICAL HISTORY: 29 years Male, cough, nv COMPARISON: 11/28/2019 TECHNIQUE: 2 view radiograph of the chest. IMPRESSION: Stably enlarged cardiac silhouette. Low inspiratory volume can accentuate the pulmonary markings. There is mildly increased perihilar fullness which may be secondary to vascular crowding other vascular congestion or bronchitis is not excluded. No lobar consolidation. No pleural effusion or pneumothorax. Thoracic spondylosis. 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
--- NOTE | 2019-11-30 13:31 | RAD ---
EXAM DESCRIPTION: Abdomen Flat Upright CLINICAL HISTORY: cough, nv COMPARISON: None. TECHNIQUE: AP supine and upright views the abdomen FINDINGS: The abdominal bowel gas pattern is normal. No evidence of free intraperitoneal air is seen. No pathologic calcifications are observed. Phleboliths are seen in the left side of the pelvis. No organomegaly is seen. IMPRESSION: Unremarkable abdomen. 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
[2019-11-30] MEDS ORDERED: ALUMINUM & MAGNESIUM HYDROXIDE 30 ML UD PO ONE (13:53)
[2019-11-30] MEDS ORDERED: OSELTAMIVIR 75 MG CAP PO ONE (13:53)
--- NOTE | 2019-11-30 13:58 | ED.PDOC ---
History of Present Illness - General Chief Complaint: General Stated Complaint: unable to keep anything down,weakness Time Seen by Provider: 11/30/19 12:47 Source: patient Exam Limitations: no limitations - History of Present Illness Initial Comments: the patient is a 29-year-old male presenting to the emergency room secondary to 3 days of symptoms of cough vomiting fever or body aches and headache. Mild epigastric discomfort to palpation. No rebound or peritoneal signs. Nares are reddened with clear rhinorrhea. Posterior oropharynx is red. Lungs are actually fairly clear. No diarrhea. No constipation. No syncope or near syncope. Timing/Duration: other - 3 or 4 days Severity: moderate Improving Factors: nothing Worsening Factors: eating Associated Symptoms: cough, fever/chills, loss of appetite, malaise Allergies/Adverse Reactions: Allergies NO KNOWN ALLERGY Allergy (Unverified 07/27/19 11:55) Home Medications: Ambulatory Orders Lisinopril 20 mg PO DAILY #30 tab 07/11/19 Albuterol Inhaler [Ventolin Hfa Inhaler] 1 - 2 puff INH Q4H PRN #1 inh 11/28/19 Prednisone 50 mg PO DAILY #5 tab 11/28/19 Ondansetron Odt [Zofran ODT] 4 mg PO Q8HR PRN #5 tab 11/30/19 Oseltamivir Capsule [Tamiflu] 75 mg PO BID 5 Days #10 capsule 11/30/19 Sucralfate Tab [Carafate Tab] 1 gm PO QID #60 tab 11/30/19 Review of Systems - Review of Systems Constitutional: States: fever, malaise EENTM: States: nose congestion, throat pain Respiratory: States: cough Cardiology: States: no symptoms reported Gastrointestinal/Abdominal: States: abdominal pain, nausea, vomiting Genitourinary: States: no symptoms reported Musculoskeletal: States: no symptoms reported - generalized body aches Skin: States: no symptoms reported Neurological: States: headache Endocrine: States: no symptoms reported All other Systems: No Change from Baseline Past Medical History (General) - Patient Medical History Hx Stroke: No Hx Congestive Heart Failure: No Hx Hypertension: Yes Hx Diabetes: No Hx Cancer: No Hx Hepatitis C: No Hx MRSA: No Surgical History: no surgical history - Vaccination History Hx Tetanus, Diphtheria Vaccination: Yes Hx Influenza Vaccination: No Hx Pneumococcal Vaccination: No - Social History Hx Tobacco Use: No Hx Chewing Tobacco Use: Yes Hx Alcohol Use: No Hx Substance Use: No Hx Substance Use Treatment: No Hx Depression: No Hx Physical Abuse: No Hx Emotional Abuse: No Family Medical History - Family History Father Family History: Unknown Living Status: Cause of : Cancer from Agent [place] Hx Family Hypertension: Yes Hx Family;Other: Mother with Cirrhosis of Liver Physical Exam - Physical Exam General Appearance: Alert, Ill Appearing Eye Exam: bilateral normal Ears, Nose, Throat: hearing grossly normal, nasal congestion, pharyngeal eryth shad Neck: full range of motion, supple Respiratory: lungs clear - frequent cough, normal breath sounds, no respiratory distress, no accessory muscle use Cardiovascular/Chest: normal peripheral pulses, regular rate, rhythm, no edema Peripheral Pulses: radial,right: 2+, radial,left: 2+ Gastrointestinal/Abdominal: soft, other - epigastric discomfort palpation. No rebound or peritoneal signs. Obese. Rectal Exam: deferred Back Exam: no CVA tenderness, no vertebral tenderness Extremity: non-tender, normal inspection, no pedal edema, normal capillary refill Neurologic: sample mounter II-XII nml as tested, alert, normal mood/affect, oriented x 3 Skin Exam: normal color Comments: Vital Signs - 24 hr 11/30/19 12:55 Temperature 99.1 F Pulse Rate [ 96 H Left Brachial] Respiratory 20 Rate Blood Pressure 126/106 [Left Arm] O2 Sat by Pulse 98 Oximetry Progress - Progress Progress: 11/30/19 14:00 the patient's a 29-year-old male presenting to the emergency room with influenza A and associated dehydration with gastritis and persistent cough. He is going to be placed on Tamiflu. He will additionally be written for Carafate to reduce the gastritis issue and Zofran to help control any nausea or vomiting. He did have [id number] dehydration and has received a liter of IV fluids here. Tylenol can be used to help control any fever and headache. He is still contagious for now. ER warnings were given for any worsening. tino carbajal [id number] - Results/Orders Results/Orders: the patient has tested positive for flu a Laboratory Tests 11/30/19 11/30/19 13:00 13:00 WBC 6.4 RBC 5.16 Hgb 14.9 Hct 44.9 MCV 86.9 MCH 28.9 MCHC 33.3 RDW 13.6 Plt Count 263 MPV 9.3 Absolute Neuts (auto) 4.10 Absolute Lymphs (auto) 1.10 Absolute Monos (auto) 1.10 H Absolute Eos (auto) 0.00 Absolute Basos (auto) 0.00 Neutrophils % 64.5 Lymphocytes % 17.4 L Monocytes % 16.7 H Eosinophils % 0.7 L Basophils % 0.7 Sodium 139 Potassium 3.8 Chloride 104 Carbon Dioxide 24 Anion Gap 14.8 BUN 10 Creatinine 0.71 BUN/Creatinine Ratio 14.1 Random Glucose 103 Serum Osmolality 276.8 Calcium 9.2 Total Bilirubin 0.5 AST 37 ALT 47 Alkaline Phosphatase 60 Creatine Kinase 117 CK-MB (CK-2) 0.8 CK-MB (CK-2) % Not Reportable Troponin I < 0.02 Serum Total Protein 7.9 Albumin 4.2 Globulin 3.7 H Albumin/Globulin Ratio 1.1 Amylase 62 Lipase 35 two-view chest into the abdomen and pelvis show no definitive acute pathology. Possible mild bronchitis. No obstruction. Departure - Departure Clinical Impression: Gastroenteritis, Influenza A, Dehydration Disposition: Discharge to Home or Self Care Condition: Fair Departure Forms: ED Discharge - Pt. Copy, Patient Portal Self Enrollment Instructions: Flu, Adult (DC) Diet: bland diet Activity: increase activity as tolerated Prescriptions: Ondansetron Odt [Zofran ODT] 4 mg PO Q8HR PRN #5 tab PRN Reason: Nausea--Moderate Oseltamivir Capsule [Tamiflu] 75 mg PO BID 5 Days #10 capsule Sucralfate Tab [Carafate Tab] 1 gm PO QID #60 tab Home Medications: Ambulatory Orders Lisinopril 20 mg PO DAILY #30 tab 07/11/19 Albuterol Inhaler [Ventolin Hfa Inhaler] 1 - 2 puff INH Q4H PRN #1 inh 11/28/19 Prednisone 50 mg PO DAILY #5 tab 11/28/19 Ondansetron Odt [Zofran ODT] 4 mg PO Q8HR PRN #5 tab 11/30/19 Oseltamivir Capsule [Tamiflu] 75 mg PO BID 5 Days #10 capsule 11/30/19 Sucralfate Tab [Carafate Tab] 1 gm PO QID #60 tab 11/30/19 Additional Instructions: the patient's a 29-year-old male presenting to the emergency room with influenza A and associated dehydration with gastritis and persistent cough. He is going to be placed on Tamiflu. He will additionally be written for Carafate to reduce the gastritis issue and Zofran to help control any nausea or vomiting. He did have [id number] dehydration and has received a liter of IV fluids here. Tylenol can be used to help control any fever and headache. He is still contagious for now. ER warnings were given for any worsening.
[2019-11-30 14:25] VITALS: BP 122/70; TEMP 98.7; O2SAT 95
== END 2019-11-30 14:25 | disposition home or self-care (01) ==
LOC: ER 12:26
DX: K52.9 Noninfective gastroenteritis and colitis, unspecified (principal); J10.1 Influenza due to other identified influenza virus with other respiratory manifestations; E86.0 Dehydration; I10 Essential (primary) hypertension; Z79.899 Other long term (current) drug therapy
CPT/HCPCS: 36415; 71046; 74019; 80053; 82150; 82550; 82553; 83690; 84484; 85025; 87502; A4216; J2550; J7030

== ENCOUNTER 2020-02-16 13:54 | Emergency (ER) | payer SELFPAY ==
--- NOTE | 2020-02-16 14:17 | ED.PDOC ---
History of Present Illness - General Chief Complaint: ENT Problem Stated Complaint: sore throat Time Seen by Provider: 02/16/20 14:14 Source: patient Additional Information: 29yo M who presents with sore throat, body aches and subjective fever onset yesterday. The patient denies cough and SOB. 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 Pt has hx of strep throat last year. No known COVID-19 exposures. No other reported issues. - History of Present Illness Improving Factors: nothing Worsening Factors: nothing Allergies/Adverse Reactions: Allergies NO KNOWN ALLERGY Allergy (Unverified 02/16/20 14:16) Home Medications: Ambulatory Orders Lisinopril 20 mg PO DAILY #30 tab 07/11/19 Amoxicillin 500 mg PO TID 7 Days cap 02/16/20 Review of Systems - Review of Systems Constitutional: States: fever. Denies: weakness EENTM: States: throat pain. Denies: ear pain, nose pain, nose congestion, throat swelling Respiratory: Denies: cough, short of breath Cardiology: Denies: chest pain, palpitations Gastrointestinal/Abdominal: Denies: abdominal pain, nausea, vomiting Musculoskeletal: Denies: muscle pain, neck pain Skin: Denies: change in color, rash Neurological: States: headache. Denies: numbness, weakness Endocrine: States: no symptoms reported Hematologic/Lymphatic: States: no symptoms reported Past Medical History (General) - Patient Medical History Hx Stroke: No Hx Congestive Heart Failure: No Hx Hypertension: Yes Hx Diabetes: No Hx Cancer: No Hx Hepatitis C: No Hx MRSA: No - Vaccination History Hx Tetanus, Diphtheria Vaccination: Yes Hx Influenza Vaccination: No Hx Pneumococcal Vaccination: No - Social History Hx Tobacco Use: No Hx Chewing Tobacco Use: Yes Hx Alcohol Use: No Hx Substance Use: No Hx Substance Use Treatment: No Hx Depression: No Hx Physical Abuse: No Hx Emotional Abuse: No Family Medical History - Family History Father Family History: Unknown Living Status: Cause of : Cancer from [place] Hx Family Hypertension: Yes Hx Family;Other: Mother with Cirrhosis of Liver Physical Exam - Physical Exam General Appearance: Alert, Comfortable Eye Exam: bilateral normal Ears, Nose, Throat: pharyngeal erythema, other - No nasal congestion Neck: non-tender, full range of motion, supple Respiratory: chest non-tender, lungs clear, normal breath sounds, no respiratory distress Cardiovascular/Chest: normal peripheral pulses, regular rate, rhythm Gastrointestinal/Abdominal: non tender, soft Extremity: normal range of motion, non-tender Neurologic: no motor/sensory deficits, alert, normal mood/affect, oriented x 3 Skin Exam: normal color Lymphatic: no adenopathy Progress - Progress Progress: DDX: URI, influenza, strep throat, pharyngitis, COVID-19, viral syndrome. Alton Naylor MD. #[id number] 02/16/20 15:13 Strep pos. Results discussed. We discussed s/s that warrant return. We discussed that though less likely, we cannot r/o COVID-19 today. The patient understands to adhere current national guidelines for social distancing. All questions answered. It was a pleasure to care for this patient today. - Results/Orders Results/Orders: Laboratory Results - last 24 hr 02/16/20 14:25 Group A Strep Rapid Positive Influenza neg Last Vital Signs Temp 98.5 F 02/16/20 14:12 Pulse 83 02/16/20 14:12 Resp 18 02/16/20 14:12 BP 160/121 02/16/20 14:12 Pulse Ox 99 02/16/20 14:12 Departure - Departure Clinical Impression: Strep throat Time of Disposition: 14:56 Disposition: Discharge to Home or Self Care Condition: Good Departure Forms: ED Discharge - Pt. Copy, Patient Portal Self Enrollment Instructions: Strep Throat (DC) Referrals: UNKNOWN,PHYSICIAN [Primary Care Provider] - 1-2 Weeks Prescriptions: Amoxicillin 500 mg PO TID 7 Days cap Home Medications: Ambulatory Orders Lisinopril 20 mg PO DAILY #30 tab 07/11/19 Amoxicillin 500 mg PO TID 7 Days cap 02/16/20
[2020-02-16] MEDS: KETOROLAC TROMETHAMINE INJ 60 MG/2 ML VIAL IM ONE (15:16)
[2020-02-16 15:31] VITALS: BP 130/97; TEMP 98.1; O2SAT 96
== END 2020-02-16 15:31 | disposition home or self-care (01) ==
LOC: ER 13:54
DX: J02.0 Streptococcal pharyngitis (principal); I10 Essential (primary) hypertension
CPT/HCPCS: 87502; 87880; J1885

== ENCOUNTER 2020-03-01 13:12 | Emergency (ER) | payer SELFPAY ==
--- NOTE | 2020-03-01 14:19 | RAD ---
EXAM DESCRIPTION: Chest,1 View: CR/DR/XR. CLINICAL HISTORY: 29 years Male cough with fever. COMPARISON: Portable one view chest November 30. TECHNIQUE: ONE VIEW PORTABLE. AP 1354 hours, upright position. FINDINGS: Technically difficult study due to patient body habitus and physical condition. Decreased inspiratory effort. No consolidation. Perihilar peribronchial wall cuffing. Cardiomegaly stable with pulmonary vascularity not increased. IMPRESSION: Limited study. Decreased inspiratory effort. Perihilar peribronchial wall cuffing is chronic most likely chronic bronchitis with no acute infiltrate. Stable cardiomegaly with pulmonary vascularity unremarkable. Electronically signed by: Mike Caballero MD 03/01/2020 2:17 PM CDT
--- NOTE | 2020-03-01 15:04 | ED.PDOC ---
History of Present Illness - General Chief Complaint: Respiratory Problem Stated Complaint: cough, body aches, fever Time Seen by Provider: 03/01/20 13:42 Source: patient, RN notes reviewed, Vital Signs reviewed, family Exam Limitations: no limitations - History of Present Illness Initial Comments: Patient is a 29-year-old white male who presents with complaints of 1-1/2 days o f fever, cough that is nonproductive and body aches. Body aches are moderate in intensity. Worse with movement and cough. The cough is worse with deep inspiration or exertion. Nobody else is sick at home. Patient is unaware of any other sick contacts. Severity: moderate Improving Factors: nothing Worsening Factors: other - Deep inspiration or Exertion Associated Symptoms: cough, fever/chills, malaise, shortness of breath, weakness Allergies/Adverse Reactions: Allergies NO KNOWN ALLERGY Allergy (Unverified 02/16/20 14:16) Home Medications: Ambulatory Orders Lisinopril 20 mg PO DAILY #30 tab 07/11/19 Amoxicillin 500 mg PO TID 7 Days cap 02/16/20 Benzonatate Perles [Tessalon Perles] 100 mg PO Q6H #16 cap 03/01/20 Review of Systems - Review of Systems Constitutional: States: see HPI, chills, fever, malaise, weakness EENTM: States: see HPI, throat pain. Denies: eye pain, double vision, throat swelling Respiratory: States: see HPI, cough, short of breath. Denies: stridor, wheezing Cardiology: States: no symptoms reported. Denies: chest pain, palpitations, syncope Gastrointestinal/Abdominal: States: no symptoms reported. Denies: abdominal pain, diarrhea, nausea, vomiting Genitourinary: States: no symptoms reported Musculoskeletal: States: see HPI, joint pain, muscle pain. Denies: neck pain Skin: States: no symptoms reported Neurological: States: see HPI, weakness. Denies: numbness, paresthesia, tingling, tremors Endocrine: States: no symptoms reported Hematologic/Lymphatic: States: no symptoms reported All other Systems: Reviewed and Negative Past Medical History (General) - Patient Medical History Hx Stroke: No Hx Congestive Heart Failure: No Hx Hypertension: Yes Hx Diabetes: No Hx Cancer: No Hx Hepatitis C: No Hx MRSA: No - Vaccination History Hx Tetanus, Diphtheria Vaccination: Yes Hx Influenza Vaccination: No Hx Pneumococcal Vaccination: No - Social History Hx Tobacco Use: No Hx Chewing Tobacco Use: Yes Hx Alcohol Use: No Hx Substance Use: No Hx Substance Use Treatment: No Hx Depression: No Hx Physical Abuse: No Hx Emotional Abuse: No - Activities of Daily Living Hospice Agency (if applicable):: None - Female History Patient is a Female of Child Bearing Age (10 -59 yrs old): No - Triage Comment ED Triage Comment: pt voices body aches, cough, pain with cough, and fever for two days. Family Medical History - Family History Father Family History: Unknown Living Status: Cause of : Cancer from Agent [place] Hx Family Hypertension: Yes Hx Family;Other: Mother with Cirrhosis of Liver Physical Exam - Physical Exam General Appearance: Alert, Anxious, Obvious distress, Obese, Well Developed, Well Hydrated, Well Nourished Eye Exam: bilateral normal Ears, Nose, Throat: hearing grossly normal, normal ENT inspection, pharyngeal erythema, tonsillar swelling Neck: non-tender, full range of motion, supple, lymphadenopathy (R), lymphadenopathy (L) Respiratory: chest non-tender, lungs clear, normal breath sounds, no respiratory distress, no accessory muscle use Cardiovascular/Chest: normal peripheral pulses, no murmur, tachycardia Peripheral Pulses: radial,right: 2+, radial,left: 2+ Gastrointestinal/Abdominal: normal bowel sounds, non tender, soft, no organomegaly, no pulsatile mass, distended Back Exam: normal inspection, no CVA tenderness, no vertebral tenderness Extremity: normal range of motion, non-tender, normal inspection Neurologic: taffy puller II-XII nml as tested, no motor/sensory deficits, alert, normal mood/affect, oriented x 3 Skin Exam: normal color, warm/dry Lymphatic: other - Submandibular lymphadenopathy. Progress - Progress Progress: Differential diagnosis: Strep, influenza, viral URI, COVID-19 among others. 03/01/20 15:12 Patient is resting comfortably. Minimal cough while here. Strep and influenza are negative. COVID-19 testing is pending. Have discussed with the patient and his about sheltering at home until his testing comes back. I have discussed this plan of care with him and they voiced understanding and agreement. Eladio Dave M.D. #[id number] - Results/Orders Results/Orders: 03/01/20 14:15 STREP A SCREEN CULTURE Stat 03/01/20 14:31 SARS-COV2 RT-PCR HIGH RISK Stat Laboratory Results - last 24 hr 03/01/20 14:15 Group A Strep Rapid Negative Influenza A: Negative Influenza B: Negative EXAM DESCRIPTION: Chest,1 View: CR/DR/XR. CLINICAL HISTORY: 29 years Male cough with fever. COMPARISON: Portable one view chest November 30. TECHNIQUE: ONE VIEW PORTABLE. AP 1354 hours, upright position. FINDINGS: Technically difficult study due to patient body habitus and physical condition. Decreased inspiratory effort. No consolidation. Perihilar peribronchial wall cuffing. Cardiomegaly stable with pulmonary vascularity not increased. IMPRESSION: Limited study. Decreased inspiratory effort. Perihilar peribronchial wall cuffing is chronic most likely chronic bronchitis with no acute infiltrate. Stable cardiomegaly with pulmonary vascularity unremarkable. Electronically signed by: Mike Caballero MD 03/01/2020 2:17 PM CDT Departure - Departure Clinical Impression: Viral upper respiratory tract infection with cough Time of Disposition: 15:13 Disposition: Discharge to Home or Self Care Condition: Good Departure Forms: ED Discharge - Pt. Copy, Patient Portal Self Enrollment Instructions: Viral Upper Respiratory Infection, Adult (DC) Diet: resume usual diet Activity: increase activity as tolerated Referrals: ODALIS JOSEPH IV, LEAF SORTER [Active Staff] - 1-5 Days Prescriptions: Benzonatate Perles [Tessalon Perles] 100 mg PO Q6H #16 cap Home Medications: Ambulatory Orders Lisinopril 20 mg PO DAILY #30 tab 07/11/19 Amoxicillin 500 mg PO TID 7 Days cap 02/16/20 Benzonatate Perles [Tessalon Perles] 100 mg PO Q6H #16 cap 03/01/20
[2020-03-01 15:48] VITALS: BP 141/111; TEMP 99.4; O2SAT 94
== END 2020-03-01 15:30 | disposition home or self-care (01) ==
LOC: ER 13:12
DX: J06.9 Acute upper respiratory infection, unspecified (principal); R50.9 Fever, unspecified; I10 Essential (primary) hypertension; Z79.899 Other long term (current) drug therapy

== ENCOUNTER → 2020-03-26 | Outpatient (CLI) | payer OTHER, SELFPAY ==
--- NOTE | 2020-03-26 17:31 | RAD ---
EXAM DESCRIPTION: Foot,Left 3 Views CLINICAL HISTORY: 29 years, Male, INJURY OF FOOT LEFT COMPARISON: February 01, 2020 TECHNIQUE: Three views left foot FINDINGS: Three views left foot demonstrate marked degenerative change and deformity of the midfoot and hindfoot, unchanged from that previously seen. Hammertoe deformity of toes two through five are again noted. Soft tissue injury or acute fracture is not apparent. Great toe is normally aligned. The metatarsals appear intact. No foreign body or acute abnormality noted. IMPRESSION: Chronic midfoot degenerative change and deformity unchanged from two months earlier with no acute abnormality noted. Electronically signed by: Estrada Joiner MD 03/26/2020 5:29 PM CDT
== END ==
LOC: RAD 14:38
PROVIDERS: ATTEND Nurse Practitioner
DX: M19.072 Primary osteoarthritis, left ankle and foot (principal); M21.6X2 Other acquired deformities of left foot